=== PATIENT | female | born 1995 | race Caucasian/White ===

== ENCOUNTER 2018-11-05 22:43 | Emergency (ER) | payer MEDICAID, OTHER ==
[~2018-11-05] VITALS: Ht 149.9 cm; Wt 61.7 kg
[2018-11-05 22:49] VITALS: BP_SYST 129
--- NOTE | 2018-11-05 22:55 | NUR ---
Patient to ER bed 7 to gown for evaluation. Side rails up. Report given to Stevie SPENCE.
--- NOTE | 2018-11-05 22:55 | NUR ---
Pt c/o pelvic pain since 14:00 today. Pt denies c/o dysuria, no vaginal discharge. Denies N/V/D.
--- NOTE | 2018-11-05 23:26 | NUR ---
Dr. Isaac at bedside to perform pelvic exam, accompanied by female chaparone.
--- NOTE | 2018-11-05 23:27 | NUR ---
Pelvic exam performed by Dr. Isaac with Janine SPENCE at bedside for entire examination. Patient tolerated procedure well. Patient assisted to position of comfort after examination.
[2018-11-05] MEDS ORDERED: NACL 0.9% 1,000 ML IV ONE (23:38)
--- NOTE | 2018-11-05 23:40 | NUR ---
# 20 gauge angiocath placed to LAC. Use of asceptic technique. Opsite placed over site. Blood return noted. Blood for lab drawn from site. Flushed with 10 cc of normal saline. No evidence of infiltration noted. Patient tolerated well.
[2018-11-05] MEDS ORDERED: KETOROLAC TROMETHAMINE 30 MG VIAL IVP ONE (23:45)
[2018-11-06 00:14] LABS: BILIRUBIN,URINE NEGATIVE (NEGATIVE); BLOOD, URINE 1+ (NEGATIVE); CLARITY/URINE CLEAR (CLEAR); COLOR,URINE YELLOW (YELLOW); GLUCOSE,URINE NEGATIVE (NEGATIVE); KETONES,URINE NEGATIVE (NEGATIVE); LEUKOCYTE ESTERASE ,URINE NEGATIVE (NEGATIVE); NITRITE, URINE NEGATIVE (NEGATIVE); PROTEIN URINE NEGATIVE (NEGATIVE); UROBILINOGEN,URINE 0.2 (0.2-1.0)
[2018-11-06 00:18] LABS: BASOPHILS # (AUTO) 0.1 K/uL (0.0-0.2); BASOPHILS % (AUTO) 0.6 % (0.0-2.0); EOSINOPHILS % (AUTO) 0.3 % (0.0-4.0); HEMATOCRIT 35.9 % (36-48); HEMOGLOBIN 12.2 g/dL (12.0-16.0); LYMPHOCYTES # (AUTO) 1.8 K/uL (1.0-5.5); LYMPHOCYTES % (AUTO) 18.2 % (20.5-51.5); MEAN CORPUSCULAR HEMOGLOBIN 30 pg (27-31); MEAN CORPUSCULAR HGB CONC 34 % (32-36); MEAN CORPUSCULAR VOLUME 88 fL (79.0-98.0); MONOCYTES # (AUTO) 0.5 K/uL (0.0-1.0); MONOCYTES % (AUTO) 4.7 % (1.7-9.3); NEUTROPHILS # (AUTO) 7.2 K/uL (1.8-7.7); NEUTROPHILS % (AUTO) 76.2 % (40.0-70.0); PLATELET COUNT (AUTO) 201 K/uL (130-430); RED BLOOD CELL COUNT(AUTO) 4.08 MIL/uL (4.2-6.2); WHITE BLOOD COUNT (AUTO) 9.6 K/uL (4.8-10.8)
[2018-11-06 00:26] LABS: CALCIUM 8.7 mg/dL (8.4-11.0); CREATININE 0.55 mg/dL (0.55-1.30); POTASSIUM 3.4 mmol/L (3.5-5.1)
[2018-11-06 00:30] LABS: ALBUMIN 3.7 g/dL (3.4-4.8); TOTAL BILIRUBIN 0.4 mg/dL (0.0-1.0)
[2018-11-06 00:50] LABS: BACTERIA,URINE FEW /HPF (None Seen); MUCUS,URINE 1+ /LPF (None Seen); WBC,URINE 0-3 /HPF (0-3)
--- NOTE | 2018-11-06 01:14 | NUR ---
Patient returned to unit via wheelchair in stable condition.
[2018-11-06 01:38] VITALS: BP_SYST 115
--- NOTE | 2018-11-06 01:38 | NUR ---
Patient given written and verbal discharge instructions and verbalizes understanding. ER MD discussed with patient the results and treatment provided. Patient in stable condition. ID arm band removed. IV catheter removed intact and dressing applied, no active bleeding. Rx of Motrin given. Patient educated on pain management and to follow up with PMD. Pain Scale 0/10. Opportunity for questions provided and answered. Medication side effect fact sheet provided.
== END 2018-11-06 01:38 | disposition home or self-care (01) ==
LOC: SED 22:43
DX: R10.2 Pelvic and perineal pain (principal)
CPT/HCPCS: 36415; 76830; 76857; 80053; 81000; 81025; 85025; 87070; 87205; 87210; 96374; 99284; J1885; J7030

== ENCOUNTER 2019-03-29 02:18 | Emergency (ER) | payer MEDICAID ==
[~2019-03-29] VITALS: Ht 147.3 cm; Wt 60.8 kg
--- NOTE | 2019-03-29 02:24 | NUR ---
Patient to ER bed 7 to gown for evaluation. Side rails up.
[2019-03-29 02:28] VITALS: BP_SYST 119
--- NOTE | 2019-03-29 02:30 | NUR ---
Pt came to the ED for ABD pain which started 30 minutes prior to arrival. Reports she has a gestational age of 18 weeks. Pain is 7/10. Denies vaginal bleeding, n/v/d or fever. No other complaints/injuries noted. Will cont. to monitor.
--- NOTE | 2019-03-29 02:35 | NUR ---
ER at bedside examining patient.
[2019-03-29 02:56] LABS: BILIRUBIN,URINE NEGATIVE (NEGATIVE); BLOOD, URINE NEGATIVE (NEGATIVE); CLARITY/URINE CLEAR (CLEAR); COLOR,URINE YELLOW (YELLOW); GLUCOSE,URINE NEGATIVE (NEGATIVE); KETONES,URINE NEGATIVE (NEGATIVE); LEUKOCYTE ESTERASE ,URINE TRACE (NEGATIVE); NITRITE, URINE NEGATIVE (NEGATIVE); PROTEIN URINE NEGATIVE (NEGATIVE); UROBILINOGEN,URINE 0.2 (0.2-1.0)
[2019-03-29 02:59] LABS: BACTERIA,URINE FEW /HPF (None Seen); RBC,URINE 0-3 /HPF (0-3)
--- NOTE | 2019-03-29 03:00 | NUR ---
Pt went to ultrasound. Tolerated well. Will cont. to monitor.
[2019-03-29 03:12] LABS: BASOPHILS % (AUTO) 0.3 % (0.0-2.0); EOSINOPHILS % (AUTO) 0.2 % (0.0-4.0); HEMATOCRIT 31.2 % (36-48); HEMOGLOBIN 10.7 g/dL (12.0-16.0); LYMPHOCYTES # (AUTO) 1.9 K/uL (1.0-5.5); LYMPHOCYTES % (AUTO) 19.2 % (20.5-51.5); MEAN CORPUSCULAR HEMOGLOBIN 31 pg (27-31); MEAN CORPUSCULAR HGB CONC 34 % (32-36); MEAN CORPUSCULAR VOLUME 90 fL (79.0-98.0); MONOCYTES # (AUTO) 0.6 K/uL (0.0-1.0); MONOCYTES % (AUTO) 6.1 % (1.7-9.3); NEUTROPHILS # (AUTO) 7.2 K/uL (1.8-7.7); NEUTROPHILS % (AUTO) 74.2 % (40.0-70.0); PLATELET COUNT (AUTO) 193 K/uL (130-430); RED BLOOD CELL COUNT(AUTO) 3.45 MIL/uL (4.2-6.2); RED CELL DISTRIBUTION WIDTH 13.8 % (9.0-15.0); WHITE BLOOD COUNT (AUTO) 9.7 K/uL (4.8-10.8)
[2019-03-29] MEDS ORDERED: ACETAMINOPHEN 325 MG TABLET PO ONE (03:30)
[2019-03-29 04:10] VITALS: BP_SYST 119
--- NOTE | 2019-03-29 04:10 | NUR ---
Patient given written and verbal discharge instructions and verbalizes understanding. ER MD Dr. Hazel discussed with patient the results and treatment provided. Patient in stable condition. ID arm band removed. Rx of Nitrafurantoin given. Patient educated on pain management and to follow up with PMD. Pain Scale 0/10. Opportunity for questions provided and answered. Medication side effect fact sheet provided.
== END 2019-03-29 04:10 | disposition home or self-care (01) ==
LOC: SED 02:18
DX: O23.42 Unspecified infection of urinary tract in pregnancy, second trimester (principal); Z3A.18 18 weeks gestation of pregnancy
CPT/HCPCS: 36415; 76805-TC; 81000-TC; 81025; 83690-TC; 85025; 99284

== ENCOUNTER 2019-09-25 07:04 | Emergency (ER) | payer MEDICAID ==
[~2019-09-25] VITALS: Ht 147.3 cm; Wt 58.5 kg
[2019-09-25 07:05] VITALS: BP_SYST 131
--- NOTE | 2019-09-25 07:05 | NUR ---
BROUGHT BACK TO BED #6 AND TRIAGED. REPORT GIVEN TO LATRICE
--- NOTE | 2019-09-25 07:14 | NUR ---
Patient is awake, alert, and oriented x4. Patient reports that she had back pain at 0400 today, it started radiating to epigastric area. Patient is complaining of sharp back pain and epigastric pressure with nausea. She denies vomiting and diarrhea.
--- NOTE | 2019-09-25 07:37 | NUR ---
ER Dr. Mcgraw at bedside examining patient.
[2019-09-25] MEDS ORDERED: NACL 0.9% 1,000 ML IV ONE (07:40)
[2019-09-25] MEDS ORDERED: ASPIRIN 81 MG TAB.CHEW PO ONE (07:45)
--- NOTE | 2019-09-25 07:57 | NUR ---
X-ray at bedside.
[2019-09-25 08:23] LABS: BASOPHILS % (AUTO) 0.6 % (0.0-2.0); EOSINOPHILS % (AUTO) 0.6 % (0.0-4.0); HEMATOCRIT 36.7 % (36-48); HEMOGLOBIN 12.4 g/dL (12.0-16.0); LYMPHOCYTES # (AUTO) 1.3 K/uL (1.0-5.5); LYMPHOCYTES % (AUTO) 24.1 % (20.5-51.5); MEAN CORPUSCULAR HEMOGLOBIN 31 pg (27-31); MEAN CORPUSCULAR HGB CONC 34 % (32-36); MEAN CORPUSCULAR VOLUME 92 fL (79.0-98.0); MONOCYTES # (AUTO) 0.3 K/uL (0.0-1.0); MONOCYTES % (AUTO) 6.4 % (1.7-9.3); NEUTROPHILS # (AUTO) 3.5 K/uL (1.8-7.7); NEUTROPHILS % (AUTO) 68.3 % (40.0-70.0); PLATELET COUNT (AUTO) 165 K/uL (130-430); RED BLOOD CELL COUNT(AUTO) 3.98 MIL/uL (4.2-6.2); RED CELL DISTRIBUTION WIDTH 14.3 % (9.0-15.0); WHITE BLOOD COUNT (AUTO) 5.2 K/uL (4.8-10.8)
[2019-09-25 08:33] LABS: ANION GAP 7 (5-15); CALCIUM 8.8 mg/dL (8.4-11.0); CHLORIDE 106 mmol/L (98-107); CREATININE 0.62 mg/dL (0.55-1.30); GLUCOSE 105 mg/dL (70-99); POTASSIUM 3.7 mmol/L (3.5-5.1); SODIUM SERUM 141 mmol/L (136-145); UREA NITROGEN, BLOOD 9 mg/dL (8-21)
[2019-09-25 08:34] LABS: GFR AFRICAN AMERICAN 155 mL/min (>90)
[2019-09-25 08:41] LABS: ALANINE AMINOTRANSFERASE 20 U/L (12-78); ALBUMIN 3.7 g/dL (3.4-4.8); ASPARTATE AMINOTRANSFERASE 16 U/L (10-37); TOTAL BILIRUBIN 0.8 mg/dL (0.0-1.0)
--- NOTE | 2019-09-25 09:00 | NUR ---
Patient given written and verbal discharge instructions and verbalizes understanding. ER MD discussed with patient the results and treatment provided. Patient in stable condition. ID arm band removed. IV catheter removed intact and dressing applied, no active bleeding. Rx of motrin given. Patient educated on pain management and to follow up with PMD. Pain Scale 0/10. Opportunity for questions provided and answered. Medication side effect fact sheet provided.
[2019-09-25 09:04] VITALS: BP_SYST 114
== END 2019-09-25 09:00 | disposition home or self-care (01) ==
LOC: SED 07:04
DX: R07.89 Other chest pain (principal); R03.0 Elevated blood-pressure reading, without diagnosis of hypertension
CPT/HCPCS: 36415; 71045; 80053; 81002; 81025; 84484; 85025; 99284; J7030; 93005

== ENCOUNTER 2019-09-30 01:39 | Emergency (ER) | payer MEDICAID ==
[~2019-09-30] VITALS: Ht 147.3 cm; Wt 58.5 kg
[2019-09-30 01:39] VITALS: BP_SYST 146
--- NOTE | 2019-09-30 01:42 | NUR ---
Placed in room 4 . Placed on conveyor monitor, blood pressure machine and pulse oximeter. To gown for exam. Side rails up.
--- NOTE | 2019-09-30 02:31 | NUR ---
7ER Dr. Ku at bedside examining patient.
--- NOTE | 2019-09-30 02:39 | NUR ---
Pt BIB family to ED C/O midsternal chest pain that radiates to the back since ~23:00 last night. The chest pain is rated 10/10 intensity. The patient reports one similar episode the last time she came to the ED (yesterday) which started 5 days ago and prescribed Ibuprofen with some improvement. Today, she reports shortness of breath as it is difficult to catch her breath. No other complaints and or injuries noted. VSS no s/s of acute dustress. Resting on gurVupen rails up
[2019-09-30] MEDS ORDERED: NACL 0.9% 1,000 ML IV ONE (02:45)
[2019-09-30 02:47] LABS: BASOPHILS % (AUTO) 0.6 % (0.0-2.0); EOSINOPHILS % (AUTO) 0.9 % (0.0-4.0); HEMATOCRIT 36.8 % (36-48); HEMOGLOBIN 12.5 g/dL (12.0-16.0); LYMPHOCYTES # (AUTO) 1.7 K/uL (1.0-5.5); LYMPHOCYTES % (AUTO) 30.3 % (20.5-51.5); MEAN CORPUSCULAR HEMOGLOBIN 32 pg (27-31); MEAN CORPUSCULAR HGB CONC 34 % (32-36); MEAN CORPUSCULAR VOLUME 92 fL (79.0-98.0); MONOCYTES # (AUTO) 0.3 K/uL (0.0-1.0); MONOCYTES % (AUTO) 5.8 % (1.7-9.3); NEUTROPHILS # (AUTO) 3.5 K/uL (1.8-7.7); NEUTROPHILS % (AUTO) 62.4 % (40.0-70.0); PLATELET COUNT (AUTO) 177 K/uL (130-430); RED BLOOD CELL COUNT(AUTO) 3.98 MIL/uL (4.2-6.2); RED CELL DISTRIBUTION WIDTH 14.1 % (9.0-15.0); WHITE BLOOD COUNT (AUTO) 5.7 K/uL (4.8-10.8)
[2019-09-30 02:58] LABS: CALCIUM 8.7 mg/dL (8.4-11.0); CREATININE 0.68 mg/dL (0.55-1.30); POTASSIUM 3.6 mmol/L (3.5-5.1)
[2019-09-30 03:02] LABS: BILIRUBIN,URINE 1+ (NEGATIVE); BLOOD, URINE NEGATIVE (NEGATIVE); CLARITY/URINE TURBID (CLEAR); COLOR,URINE YELLOW (YELLOW); GLUCOSE,URINE NEGATIVE (NEGATIVE); KETONES,URINE NEGATIVE (NEGATIVE); LEUKOCYTE ESTERASE ,URINE 1+ (NEGATIVE); NITRITE, URINE NEGATIVE (NEGATIVE); PROTEIN URINE NEGATIVE (NEGATIVE); UROBILINOGEN,URINE 0.2 (0.2-1.0)
[2019-09-30 03:03] LABS: PROTHROMBIN TIME 9.6 SECS (9.5-12.5)
[2019-09-30 03:07] LABS: BACTERIA,URINE MANY /HPF (None Seen); RBC,URINE 0-3 /HPF (0-3)
[2019-09-30 03:14] LABS: ALBUMIN 3.9 g/dL (3.4-4.8); TOTAL BILIRUBIN 0.6 mg/dL (0.0-1.0)
[2019-09-30] MEDS ORDERED: cefTRIAXone 1 GM IVPB PREMIX 50 ML IV ONE (05:30)
[2019-09-30 07:46] VITALS: BP_SYST 121
--- NOTE | 2019-09-30 07:47 | NUR ---
Patient given written and verbal discharge instructions and verbalizes understanding. ER MD discussed with patient the results and treatment provided. Patient in stable condition. ID arm band removed. IV catheter removed intact and dressing applied, no active bleeding. Rx of KEFLEX, NORCO given. Patient educated on pain management and to follow up with PMD. Pain Scale 0/10. Opportunity for questions provided and answered. Medication side effect fact sheet provided.
== END 2019-09-30 07:47 | disposition home or self-care (01) ==
LOC: SED 01:39
DX: S23.3XXA Sprain of ligaments of thoracic spine, initial encounter (principal); N39.0 Urinary tract infection, site not specified; R07.89 Other chest pain; X50.9XXA Other and unspecified overexertion or strenuous movements or postures, initial encounter; Y93.89 Activity, other specified; Y92.89 Other specified places as the place of occurrence of the external cause; Y99.8 Other external cause status
CPT/HCPCS: 36415; 71045; 80053; 81000; 81025; 82550; 83880; 84484; 85025; 85379; 85610; 87086; 93005; 96365; 99284; J0696; J7030

== ENCOUNTER 2019-11-23 21:27 | Emergency (ER) | payer MEDICAID ==
[~2019-11-23] VITALS: Ht 147.3 cm; Wt 59.0 kg
[2019-11-23 21:30] VITALS: BP_SYST 117
[2019-11-24 00:02] VITALS: BP_SYST 112
== END 2019-11-24 00:02 | disposition home or self-care (01) ==
LOC: SED 21:27
DX: M54.6 Pain in thoracic spine (principal); F41.9 Anxiety disorder, unspecified
CPT/HCPCS: 81025; 93005; 99283